=== PATIENT | female | born 1940 | race Caucasian/White ===

== ENCOUNTER 2016-08-26 05:05 | Inpatient (IN) ==
[2016-08-25 14:03] LABS: Appearance,Urine CLEAR; Bilirubin,Urine NEG (NEG); Color,Urine STRAW; Glucose,Urine (UA) NEGATIVE (NEG); Leukocyte Esterase,Urine NEG /uL (NEG); Nitrate,Urine NEG (NEG); Protein,Urine NEG (NEG); Specific Gravity,Urine 1.003 (1.000-1.035); Urine Blood NEG mg/dL (<0.03); Urobilinogen,Urine NEG (NEG)
[2016-08-25 14:21] LABS: Basophils # (Auto) 0 K/mcL (0.0-0.3); Basophils % (Auto) 0.7 % (0.0-2.0); Eosinophils # (Auto) 0.1 K/mcL (0.0-0.7); Eosinophils % (Auto) 1.8 % (0.0-7.0); Granulocytes % (Auto) 58.9 % (38.0-78.0); Lymphocytes # (Auto) 1.6 K/mcL (1.5-4.8); Lymphocytes % (Auto) 31.5 % (15.5-49.0); Mean Cell Volume 93.1 fL (80.0-100.0); Mean Corpuscular HGB Conc 34.3 g/dL (31.0-36.0); Mean Corpuscular Hemoglobin 31.9 pg (26.0-34.0); Monocytes # (Auto) 0.4 K/mcL (0.1-0.9); Monocytes % (Auto) 7.1 % (1.0-12.0); Platelet Count 211 K/mcL (140-440); RBC 4.33 M/mcL (4.00-5.20); Red Cell Distribution Width 13.8 % (11.5-14.5)
[2016-08-25 14:23] LABS: Blood Urea Nitrogen 9 mg/dl (8-23)
[2016-08-26] MEDS ORDERED: ceFAZolin 1 GM VIAL IV SCH (06:00)
[2016-08-26] MEDS ORDERED: PROPOFOL 200 MG/20 ML VIAL IV ONE (07:25)
[2016-08-26] MEDS ORDERED: MIDAZOLAM 5 MG/5 ML VIAL IV ONE (07:25)
[2016-08-26] MEDS ORDERED: ONDANSETRON 4 MG/2 ML VIAL IV ONE (07:25)
[2016-08-26] MEDS ORDERED: TRANEXAMIC ACID 1,000 MG/10 ML VIAL IV ONE ×2 (07:25→09:04)
[2016-08-26] MEDS ORDERED: ESMOLOL 100 MG/10 ML VIAL IV ONE (07:25)
[2016-08-26] MEDS ORDERED: KETAMINE 100 MG/ML ML IV ONE (07:25)
[2016-08-26] MEDS ORDERED: ROPIVACAINE HCL/PF 30 ML VIAL IJ ONE (07:25)
[2016-08-26] MEDS ORDERED: LIDOCAINE HCL/PF 100 MG/5 ML SYRINGE IV ONE (07:25)
[2016-08-26] MEDS ORDERED: GLYCOPYRROLATE 0.2 MG/ML VIAL IV ONE (07:25)
[2016-08-26] MEDS ORDERED: PHENYLEPHRINE 10 MG/ML VIAL IV ONE (07:25)
[2016-08-26] MEDS ORDERED: GENTAMICIN SULFATE 800 MG/20 ML VIAL IR ONE (08:00)
[2016-08-26] MEDS ORDERED: KETOROLAC 30 MG, ROPIVACAINE HCL/PF 49.5 ML, EPINEPHrine 0.5 MG, 0.9 % SODIUM CHLORIDE ... IJ ONE (08:00)
[2016-08-26] MEDS ORDERED: FLEETS ADULT ENEMA PR PRN (09:04)
[2016-08-26] MEDS ORDERED: ONDANSETRON 4 MG/2 ML VIAL IV PRN ×2 (09:04→09:39)
[2016-08-26] MEDS ORDERED: BENZOCAINE/MENTHOL 1 LOZENGE PO PRN ×2 (09:04→09:39)
[2016-08-26] MEDS ORDERED: BISACODYL 10 MG SUPP.RECT PR PRN (09:04)
[2016-08-26] MEDS ORDERED: MAGNESIUM HYDROXIDE 30 ML ORAL.SUSP PO PRN (09:04)
[2016-08-26] MEDS ORDERED: POLYETHYLENE GLYCOL 3350 17 GM PACKET PO PRN (09:04)
--- NOTE | 2016-08-26 09:04 | Brief Operative Note ---
Date of procedure: 08/26/16 Pre-op diagnosis: DJD left knee Post-op diagnosis: same Procedure: L TKR (Teague) Grafts/Implants: Yes (Teague 08/28, 35 patella) Anesthesia: GETA Complications: none Surgeon: Nain Cotter Admissions Specialist: Isaiah Fraser Estimated blood loss (cc): 500 Tourniquet Time (Minutes): 22 Specimens Removed/Pathology: none sent Condition: stable Disposition: floor
[2016-08-26] MEDS ORDERED: fentaNYL 100 MCG/2 ML VIAL IV PRN (09:39)
[2016-08-26] MEDS ORDERED: METHOCARBAMOL 1,000 MG/10 ML VIAL IV PRN (09:39)
[2016-08-26] MEDS ORDERED: KETOROLAC 15 MG/ML VIAL IV PRN (09:39)
[2016-08-26] MEDS ORDERED: MEPERIDINE 25 MG/ML SYRINGE IV PRN (09:39)
[2016-08-26] MEDS ORDERED: IPRATROPIUM/ALBUTEROL 3 ML AMPUL.NEB NEB PRN (09:39)
[2016-08-26] MEDS ORDERED: METOPROLOL TARTRATE 5 MG/5 ML VIAL IV PRN (09:39)
[2016-08-26] MEDS ORDERED: LACTATED RINGERS 1,000 ML IV SCH (09:45)
[2016-08-26] MEDS ORDERED: TRANEXAMIC ACID 1,000 MG/10 ML VIAL IV SCH (09:45)
--- NOTE | 2016-08-26 10:00 | XRay Report ---
HISTORY: Reason for Exam:Post-op total knee FINDINGS: There is a well positioned total knee prosthesis. No fracture or abnormal soft tissue calcification are present. IMPRESSION: Well-positioned left knee prosthesis Interpreted and Authenticated by: Ector Farai 08/26/16
--- NOTE | 2016-08-26 10:24 | Operative Note ---
DATE OF OPERATION: 08/26/2016 PREOPERATIVE DIAGNOSIS: Degenerative joint disease of the left knee. POSTOPERATIVE DIAGNOSIS: Degenerative joint disease of the left knee. OPERATION: Left total knee replacement. SURGEON: Nain Cotter MD. SCIENCE TUTOR: Isaiah Fraser PA-C. ANESTHESIA: General, done by Dr. Galan. TOURNIQUET TIME: 22 minutes. ESTIMATED BLOOD LOSS: 500 mL. SUMMARY OF PROCEDURE: General anesthesia was attained. The left leg was prepped and draped. A midline incision was made from the quadriceps to the tibial tubercle. This was taken down sharply to the quadriceps and medial retinacular layer. This was opened sharply. The patella was mobilized laterally. The anterior menisci were resected, as was the ACL. The knee was flexed. The intramedullary canal of the femur was drilled and then reamed. The distal femoral cutting guide was placed. I cut the distal femur at 11 mm as the patient had an 8 to 10 degree flexion contracture under anesthesia. The knee was sized. It sized to a 6 femur. The anterior, posterior and bevel cuts were made. The knee was flexed. The posterior aspect of the knee was well exposed. The posterior menisci were resected. The intramedullary canal was drilled and then reamed. A proximal guide was placed. I cut 5 mm off the [place] medially. The proximal tibia was resected. The tibia sized to a 3. The rotation was adjusted to match the patient's. The stem cuts and broaching were then accomplished. Next, the box cut was made in the femur using the guide system for the Teague knee. The posterior cut was made first, followed by the side cuts. Insert sizing was then done. The best combination of flexion and extension gap that were stable with a full range of motion was with a 10 mm thick liner. Medial and lateral stability was excellent. There was no flexion gap instability. The patella was everted. An 11 mm resection was made of the patella from a 25 level thickness to 14. The depth was confirmed and the cuts were done using a caliper for precision. The three anchoring holes were made in the bone for the cement pegs of the patella. The bone surfaces were copiously irrigated. Posterior block was then done using a multimodal injection. The components were cemented in. Excess cement was removed. After the cement had hardened, the tourniquet was let down, and all bleeding points were coagulated. This tourniquet was put up just prior to cementation. For cement, a cement gun was used on the bone and cement placed manually on all the components. After hemostasis was obtained, the wound was closed in 30 degrees of flexion. The quadriceps was closed with buried simple sutures of 0 FiberWire and then a running locking layer of 0 Maxon. The subcutaneous tissue was closed with 2-0 Monocryl. The skin was closed with Durabond A sterile compressive dressing was applied. The sponge and needle count was correct. The patient tolerated the procedure well and was taken to the recovery room in stable condition. [email or web address] Job ID: [id number] Doc ID: [id number] Nain Cotter MD MTDD
[2016-08-26] MEDS: 0.9 % SODIUM CHLORIDE 1,000 ML IV SCH ×2 (10:29→19:15)
[2016-08-26] MEDS: METHOCARBAMOL 1,000 MG/10 ML VIAL IV PRN (11:54)
[2016-08-26] MEDS: 0.9 % SODIUM CHLORIDE 10 ML SYRINGE IV SCH (15:39)
[2016-08-26] MEDS: FERROUS SULFATE 325 MG TABLET PO SCH (17:41)
[2016-08-26] MEDS: HYDROCODONE/APAP 7.5/325MG TABLET PO PRN (20:01)
[2016-08-26] MEDS: SENNOSIDES 1 TABLET PO SCH (21:05)
[2016-08-26] MEDS: oxyCODONE 10 MG TAB.ER.12H PO SCH (21:06)
[2016-08-26] MEDS: DOCUSATE SODIUM 100 MG CAPSULE PO SCH (21:06)
[2016-08-26] MEDS: ENOXAPARIN 30 MG/0.3 ML SYRINGE SQ SCH (21:07)
[2016-08-27] MEDS: HYDROCODONE/APAP 7.5/325MG TABLET PO PRN ×5 (03:41→22:13)
[2016-08-27] MEDS: 0.9 % SODIUM CHLORIDE 10 ML SYRINGE IV SCH ×4 (06:58→20:38)
[2016-08-27] MEDS: FERROUS SULFATE 325 MG TABLET PO SCH ×2 (08:38→17:33)
[2016-08-27] MEDS: oxyCODONE 10 MG TAB.ER.12H PO SCH ×2 (08:38→20:34)
[2016-08-27] MEDS: DOCUSATE SODIUM 100 MG CAPSULE PO SCH ×2 (08:38→20:34)
[2016-08-27] MEDS: ENOXAPARIN 30 MG/0.3 ML SYRINGE SQ SCH ×2 (08:39→20:33)
[2016-08-27] MEDS: METHOCARBAMOL 1,000 MG/10 ML VIAL IV PRN ×2 (13:15→19:19)
--- NOTE | 2016-08-27 16:40 | Orthopedic Progress Note ---
Subjective Patient information: Note initiated : 08/27/16 at 4:37 pm Service Date, if different from initiated Date: [] Patient: Miracle Rudolph 76 y/o F admitted on 08/26/16 for Left Total Knee Arthroplasty. Chief Complaint: [] Principal diagnosis: L TKR Interval history: ambulated well today; has thigh pain Pertinent ROS: no weakness; pain controlled Objective Vital signs: Vital Signs Temp Pulse Resp BP BP Pulse Ox 08/27/16 15:07 96.5 F L 16 149/85 95 08/27/16 12:00 97.8 F 16 156/77 98 08/27/16 04:00 98.5 F 88 16 114/63 98 08/27/16 00:00 98.5 F 100 H 18 128/74 95 08/26/16 20:00 98.6 F 83 16 131/81 96 Intake and Output 08/27/16 08/27/16 08/27/16 05:59 13:59 21:59 Intake Total 700 / 700 980 / 980 200 / 200 Output Total 400 / 400 500 / 500 350 / 350 Balance 300 / 300 480 / 480 -150 / -150 Intake: Oral 700 / 700 980 / 980 200 / 200 Output: Void Amount 400 / 400 500 / 500 350 / 350 Other: Meal Breakfast Percent of Meal Consumed 75% # Voids 1 Intake & Output: Intake & Output 08/27/16 08/27/16 08/27/16 05:59 13:59 21:59 Intake Total 700 / 700 980 / 980 200 / 200 Output Total 400 / 400 500 / 500 350 / 350 Balance 300 / 300 480 / 480 -150 / -150 Intake: Oral 700 / 700 980 / 980 200 / 200 Output: Void Amount 400 / 400 500 / 500 350 / 350 Other: Meal Breakfast Percent of Meal Consumed 75% # Voids 1 Dressing: Yes clean, Yes dry, Yes intact Weight bearing status: full Neurological exam IM: Yes motor sensory intact Extremities exam IM: Yes normal capillary refill - Diagnostic Results Knee MRI: image reviewed (well positioned total knee prosthesis) - Labs CBC & BMP: 08/27/16 05:17 08/25/16 12:19 Labs: Orthopedic Labs 08/25/16 12:19 PT 12.8 INR 0.9 08/27/16 08/25/16 05:17 12:19 Hgb 9.5 L 13.8 Hct 26.2 L 40.3 Assessment and Plan (1) Total knee replacement status Doing well. Planned d/c for tomorrow after PT Status: Acute
[2016-08-27] MEDS: SENNOSIDES 1 TABLET PO SCH (20:34)
[2016-08-28] MEDS: HYDROCODONE/APAP 7.5/325MG TABLET PO PRN ×2 (02:13→07:22)
[2016-08-28] MEDS: 0.9 % SODIUM CHLORIDE 10 ML SYRINGE IV SCH (05:35)
[2016-08-28] MEDS: FERROUS SULFATE 325 MG TABLET PO SCH (07:22)
[2016-08-28] MEDS: DOCUSATE SODIUM 100 MG CAPSULE PO SCH (09:01)
[2016-08-28] MEDS: ENOXAPARIN 30 MG/0.3 ML SYRINGE SQ SCH (09:01)
== END 2016-08-28 10:25 | disposition home or self-care (01) | DRG 470 ==
LOC: MEDSUR 05:05
PROVIDERS: ADMIT Orthopaedic Surgery Foot and Ankle Surgery; ATTEND Orthopaedic Surgery Foot and Ankle Surgery